=== PATIENT | female | born 1945 | race African-American/Black ===

== ENCOUNTER 2017-08-10 12:04 | Emergency (ER) | payer MEDICARE ==
[2017-08-10] MEDS ORDERED: HYDROcodone/Acetaminophen 5/325 mg Tablet ONE (13:54)
[2017-08-10] MEDS ORDERED: Diazepam 5 MG TAB ONE (14:24)
[2017-08-10 14:45] LABS: #Basophils 0.1 thou/uL (0.0-0.2); #Eosinphils 0.1 thou/uL (0.0-0.7); #Lymphocytes 2.2 thou/uL (1.20-3.40); #Monocytes 0.6 thou/uL (0.11-0.59); #Neutrophils 5.6 thou/uL (1.40-6.50); %Basophils 0.9 % (0.0-1.0); %Eosinophils 0.7 % (0.0-10.0); %Lymphocytes 26.1 % (21.0-51.0); %Monocytes 6.5 % (0.0-10.0); Hematocrit 44.2 % (36.0-47.0); Mean Platelet Volume 8.8 fL (7.4-10.4); Red Blood Cell (RBC) Count 5.16 mill/uL (4.20-5.40); White Blood Cell (WBC) Count 8.5 thou/uL (4.8-10.8)
[2017-08-10 15:05] LABS: ALT (SGPT) 20 U/L (8-55); AST (SGOT) 16 U/L (5-34); Alkaline Phosphatase 82 U/L (40-150); Anion Gap 18 mmol/L (10-20); BUN (Urea Nitrogen) 26 mg/dL (9.8-20.1); Bilirubin, Total 0.6 mg/dL (0.2-1.2); CK (CPK) 35 U/L (29-168); Calc. Creatinine Clearance 0 mL/min (70-130); Calcium 10.2 mg/dL (7.8-10.44); Carbon Dioxide 19 mmol/L (23-31); Chloride 105 mmol/L (98-107); Estimated GFR-MDRD 53; Globulin 4.3 g/dL (2.4-3.5); Magnesium 2.1 mg/dL (1.6-2.6); Protein, Total 8.7 g/dL (6.0-8.3)
--- NOTE | 2017-08-10 15:19 | RAD ---
RIGHT HIP TWO VIEWS: HISTORY: A 72-year-old female with right hip and bilateral leg pain without associated trauma. FINDINGS: There is some heterogeneous bony demineralization. Mild right hip joint arthrosis. No acute fractu re. Degenerative changes of both SI joints. 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 Bony demineralization without acute fr acture or dislocation. POS: [facility]
--- NOTE | 2017-08-10 15:20 | RAD ---
AP PELVIS ONE VIEW: HISTORY: A 72-year-old female with right hip pain and bilateral leg pain without associated injury. FINDINGS: There are degenerative changes involving the hip joints, SI joints, and the region of the pubic symp hysis, as well as lower lumbar spine spondylosis. Mild bony demineralization. No acute pelvic frac ture. IMPRESSION: 1. No acute fracture. 2. Generalized degenerative changes. 3. Mild bony demineralization. POS: [facility]
[2017-08-10 16:18] LABS: Bilirubin Negative (Negative); Blood, Urine Negative (Negative); Glucose, Urine (Dipstick) Negative (Negative); Ketone, Urine Negative (Negative); Nitrite Negative (Negative); Protein, Urine (Dipstick) Negative (Neg-Trace)
--- NOTE | 2017-08-10 16:42 | CT ---
ABDOMEN AND PELVIC CT SCAN WITH IV CONTRAST: 08/10/17 HISTORY: 69-year-old female with abdominal pain which began two weeks ago radiating around to back. COMPARISON: 09/23/14 FINDINGS: The lung bases are clear. Status post cholecystectomy and hysterectomy. Dilatation of the common valentina e duct consistent with post cholecystectomy without evidence for acute biliary tract obstruction. Pa ncreas, spleen and adrenal glands are unremarkable. Small hiatal hernia. Too small to characterize b ilateral renal hypodensity statistically small renal cysts. A focal area of minimal subcutaneous fat stranding focally over the left anterior abdomen just above the level of the umbilicus. Etiology of which is uncertain. Normal appearing appendix. Mild anterolisthesis of L4 on L5 with some moderate canal and lateral recess and foraminal stenosis. Generalized atherosclerotic calcific disease of the aorta and iliac arteries. No evidence of adenopathy, abscess or abnormal fluid collection within th e abdomen or pelvis. IMPRESSION: Postcholecystectomy common duct dilatation. Small hiatal hernia. Too small to characterize renal hyp odensities probably small cysts. Small focal area of subcutaneous fat stranding in the left anterior abdominal wall approximately 7 cm lateral to the umbilicus. Normal appearing appendix. 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 Diverticulosis without acute diverti culitis. POS: [facility]
--- NOTE | 2017-08-10 16:50 | CT ---
CT LUMBAR SPINE NONCONTRAST: 08/10/17 HISTORY: 72-year-old female with bilateral lumbar radiculopathy. COMPARISON: No prior CTs of the lumbar spine. There is an MRI of 11/29/12. FINDINGS: There are five lumbar type vertebrae. The vertebral body heights are maintained. There is mild disc space narrowing at L5-S1. The rest of the disc spaces are maintained. At L4-5, there is severe bilateral degenerative facet hypertrophy. This facet DJD causes a grade I a nterolisthesis of L4 on L5, resulting in bilateral moderate neural foraminal stenosis. The severe bi lateral facet hypertrophy decreases the transverse diameter of the spinal canal and thecal sac by a mild degree. There is at least moderate lateral recess stenosis bilaterally, At L2-3, there is mild to moderate bilateral degenerative facet hypertrophy, causing mild to moderat e degree of central spinal canal stenosis which is probably not significantly changed, allowing for the fact that these are two different imaging modalities. The spinal canal and thecal sac are generous in caliber at all other levels. There is no high grade neural foraminal stenosis at any other level. At L5-S1, in addition to a disc bulge, there is a superimposed new left paracentral/lateral focal di sc herniation which posteriorly displaces and mildly deforms the left S1 nerve root. No high grade d egenerative facet changes at L5-S1. The left sided small focal disc herniation at L5-S1 is the only significant interval change since the MRI of 11/29/12. There are two large anterior bridging osteophy lucy protruding into the prevertebral space, one on the right and one on the left, at L5-S1, fixating this level. IMPRESSION: 1. Small left paracentral disc herniation at L5-S1 impinging on the left S1 nerve root. This is the only interval change compared to the MRI of 11/29/12. 2. Severe facet osteoarthrosis at L4-5 causing a mild grade I spondylolisthesis, mild central s amber canal stenosis, moderate lateral recess stenosis bilaterally, and moderate neural foraminal st enosis bilaterally, unchanged since 11/29/12. 3. Mild to moderate central spinal canal stenosis at L2-3 due to mild to moderate bilateral deg enerative facet hypertrophy. 4. No central stenosis or high grade neural foraminal stenosis at any other level. POS: [facility]
== END 2017-08-10 17:30 | disposition home or self-care (01) ==
LOC: ERS 12:04
DX: M87.9 Osteonecrosis, unspecified (principal); M48.061 Spinal stenosis, lumbar region without neurogenic claudication; E11.40 Type 2 diabetes mellitus with diabetic neuropathy, unspecified; J45.909 Unspecified asthma, uncomplicated; Z79.4 Long term (current) use of insulin; Z79.899 Other long term (current) drug therapy
CPT/HCPCS: 36415; 72131; 72170; 74177; 80053; 81003; 82550; 83735; 85025

== ENCOUNTER 2018-05-31 13:57 | Outpatient (CLI) | payer MEDICARE | END 2018-05-31 13:58 | disposition home or self-care (01) | LOC: ULT 13:57 | PROVIDERS: ATTEND Internal Medicine Geriatric Medicine | DX: R01.1 Cardiac murmur, unspecified (principal); I08.3 Combined rheumatic disorders of mitral, aortic and tricuspid valves | CPT/HCPCS: 93306 ==

== ENCOUNTER 2018-10-13 08:15 | Outpatient (CLI) | payer MEDICARE | END 2018-10-13 08:16 | disposition home or self-care (01) | LOC: BICMAMMO 08:15 | PROVIDERS: ATTEND Internal Medicine Geriatric Medicine | DX: Z12.31 Encounter for screening mammogram for malignant neoplasm of breast (principal); R92.1 Mammographic calcification found on diagnostic imaging of breast | CPT/HCPCS: 77063; 77067 ==

== ENCOUNTER 2019-11-30 07:34 | Outpatient (CLI) | payer MEDICARE ==
--- NOTE | 2019-11-30 10:11 | ULT ---
RIGHT UPPER QUADRANT ULTRASOUND: HISTORY: Epigastric pain. FINDINGS: The patient is post cholecystectomy. The liver and visualized portions of the pancreas appear normal . There is a tiny echogenic focus in the right kidney, likely calculus. No hydronephrosis is seen. No free fluid is noted in the Jalloh's pouch. The common duct measures 7 mm in diameter. IMPRESSION: 1. Status post cholecystectomy. 2. Probably nonobstructing tiny right renal calculus. POS: [facility]
== END 2019-11-30 07:35 | disposition home or self-care (01) ==
LOC: BICULT 07:34
PROVIDERS: ATTEND Family Medicine
DX: R10.13 Epigastric pain (principal); Z90.49 Acquired absence of other specified parts of digestive tract
CPT/HCPCS: 76705

== ENCOUNTER 2019-12-24 08:07 | Outpatient (CLI) | payer MEDICARE ==
--- NOTE | 2019-12-24 09:23 | BD ---
DEXA BONE DENSITY STUDY: Date: 12/24/2019 HISTORY: Postmenopausal female. FINDINGS: Lumbar Spine: BMD (g/cm2) L1 0.948 T-Score: -0.4 L2 1.031 T-Score: 0.0 L3 0.994 T-Score: -0.8 L4 1.133 T-Score: +0.7 L1-L4 1.032 T-Score: -0.1 Within normal limits with no increased risk for fracture. Left Hip: Femoral Neck: 0.614 T-Score: -2.1 Total Femur: 0.736 T-Score: -1.7 Evidence for osteopenia with increased risk for fracture. FRAX SCORE: Major osteoporotic fracture: 6.1% Hip fracture: 1.6% POS: [facility]
== END 2019-12-24 08:08 | disposition home or self-care (01) ==
LOC: BICMAMMO 08:07
PROVIDERS: ATTEND Family Medicine
DX: M81.6 Localized osteoporosis [Lequesne] (principal); M85.852 Other specified disorders of bone density and structure, left thigh
CPT/HCPCS: 77080

== ENCOUNTER 2020-08-11 15:43 | Emergency (ER) | payer MEDICARE ==
[2020-08-11 16:22] LABS: #Basophils 0.1 thou/uL (0.0-0.2); #Eosinphils 0.4 thou/uL (0.0-0.7); #Lymphocytes 2.2 thou/uL (1.20-3.40); #Monocytes 0.4 thou/uL (0.11-0.59); #Neutrophils 2.8 thou/uL (1.40-6.50); %Basophils 1.1 % (0.0-1.0); %Eosinophils 6.4 % (0.0-10.0); %Lymphocytes 37.7 % (21.0-51.0); %Neutrophils 47.8 % (42.0-75.0); Hemoglobin 12.4 g/dL (12.0-16.0); Mean Corpuscular HGB CONC 32.8 g/dL (32.0-36.0); Mean Corpuscular Hemoglobin 28.8 pg (27.0-31.0); Mean Corpuscular Volume 87.9 fL (78.0-98.0); Mean Platelet Volume 9.2 fL (7.4-10.4); Platelet Count 183 thou/uL (130-400); RBC Distribution Width 12.4 % (11.5-14.5); Red Blood Cell (RBC) Count 4.31 mill/uL (4.20-5.40); White Blood Cell (WBC) Count 5.8 thou/uL (4.8-10.8)
--- NOTE | 2020-08-11 16:25 | RAD ---
CHEST ONE VIEW: History: Dizziness, weakness, shortness of breath. Comparison: 01-26-2016 FINDINGS: Heart size is upper limits of normal. There are vascular calcifications along the aortic arch. Lungs are clear. No pleural effusion or pneumothorax is evident. No definite acute osseous abnormality is n oted. There is suggestion of healed fracture deformity along the proximal right humerus that appears similar to the comparison examination in 2016. IMPRESSION: No definite acute cardiopulmonary abnormality. POS: [facility]
--- NOTE | 2020-08-11 16:28 | CT ---
CT BRAIN WITHOUT CONTRAST: HISTORY:Lightheadedness, dizziness, headache and weakness COMPARISON:06/06/2010 FINDINGS: There are foci of decreased attenuation in the periventricular white matter, consistent with chronic small vessel ischemic disease. No evidence of acute infarct, hemorrhage, midline shift or abnormal extra-axial fluid collections is seen. The ventricular size is appropriate and the basilar cisterns are patent. The bony calvarium is intact. The visualized paranasal sinuses and mastoid air cells are well aerated. IMPRESSION: No CT evidence of acute intracranial process.
[2020-08-11 16:43] LABS: ALT (SGPT) 23 U/L (8-55); AST (SGOT) 19 U/L (5-34); Alkaline Phosphatase 74 U/L (40-110); Anion Gap 12 mmol/L (10-20); BUN (Urea Nitrogen) 16 mg/dL (9.8-20.1); Bilirubin, Total 0.2 mg/dL (0.2-1.2); Calc. Creatinine Clearance 0 mL/min (70-130); Calcium 9.6 mg/dL (7.8-10.44); Carbon Dioxide 24 mmol/L (23-31); Chloride 104 mmol/L (98-107); Estimated GFR-MDRD 53; Globulin 3.4 g/dL (2.4-3.5); Glucose 155 mg/dL (83-110); Lipase 49 U/L (8-78); Potassium 3.8 mmol/L (3.5-5.1); Protein, Total 7.4 g/dL (6.0-8.3); Sodium 136 mmol/L (136-145)
== END 2020-08-11 19:04 | disposition home or self-care (01) ==
LOC: ERS 15:43
DX: I35.0 Nonrheumatic aortic (valve) stenosis (principal); E11.40 Type 2 diabetes mellitus with diabetic neuropathy, unspecified; J45.909 Unspecified asthma, uncomplicated; E78.00 Pure hypercholesterolemia, unspecified; I10 Essential (primary) hypertension; Z79.84 Long term (current) use of oral hypoglycemic drugs; Z79.899 Other long term (current) drug therapy
CPT/HCPCS: 36415; 70450; 71045; 80053; 83690; 85025; 85379; 93005

== ENCOUNTER 2021-04-09 22:50 | Observation (INO) | payer MEDICARE ==
[2021-04-09] MEDS ORDERED: Lidocaine Viscous Sol 2% 15 ml UD Cup ONE (23:24)
[2021-04-09] MEDS ORDERED: Aspirin Chewable 81 MG TAB ONE (23:24)
[2021-04-09] MEDS ORDERED: Mag-Al 1200 mg/1200 mg/30 ML UDCUP ONE (23:24)
[2021-04-09 23:41] LABS: #Basophils 0.1 thou/uL (0.0-0.2); #Eosinphils 0.4 thou/uL (0.0-0.7); #Lymphocytes 2.3 thou/uL (1.20-3.40); #Monocytes 0.5 thou/uL (0.11-0.59); #Neutrophils 2.7 thou/uL (1.40-6.50); %Basophils 1.6 % (0.0-1.0); %Eosinophils 6.6 % (0.0-10.0); %Lymphocytes 38.4 % (21.0-51.0); %Monocytes 8.7 % (0.0-10.0); %Neutrophils 44.6 % (42.0-75.0); Hemoglobin 11.4 g/dL (12.0-16.0); Mean Corpuscular HGB CONC 32.6 g/dL (32.0-36.0); Mean Corpuscular Hemoglobin 28.4 pg (27.0-31.0); Mean Corpuscular Volume 87.3 fL (78.0-98.0); Mean Platelet Volume 9.4 fL (7.4-10.4); Platelet Count 176 thou/uL (130-400); RBC Distribution Width 12.5 % (11.5-14.5); Red Blood Cell (RBC) Count 4.01 mill/uL (4.20-5.40)
[2021-04-10 00:03] LABS: ALT (SGPT) 14 U/L (8-55); AST (SGOT) 16 U/L (5-34); Albumin 3.9 g/dL (3.4-4.8); Alkaline Phosphatase 73 U/L (40-110); Anion Gap 13 mmol/L (10-20); BUN (Urea Nitrogen) 20 mg/dL (9.8-20.1); Bilirubin, Total 0.2 mg/dL (0.2-1.2); Calc. Creatinine Clearance 0 mL/min (70-130); Calcium 9.4 mg/dL (7.8-10.44); Carbon Dioxide 21 mmol/L (23-31); Chloride 108 mmol/L (98-107); Globulin 3.4 g/dL (2.4-3.5); Glucose 156 mg/dL (83-110); Potassium 3.7 mmol/L (3.5-5.1); Protein, Total 7.3 g/dL (5.8-8.1); Sodium 138 mmol/L (136-145)
[2021-04-10 02:11] LABS: Troponin I 0.011 ng/mL (< 0.028)
[2021-04-10] MEDS ORDERED: Acetaminophen 325 MG TAB PO PRN (04:30)
[2021-04-10] MEDS ORDERED: Ondansetron ODT 4 MG TAB SL PRN (04:30)
[2021-04-10] MEDS ORDERED: Ondansetron PF 4 MG/2 ML Vial IVP PRN (04:30)
[2021-04-10] MEDS ORDERED: Dextrose 5% in Water 1,000 ML IV PRN ×2 (04:43→08:24)
[2021-04-10] MEDS ORDERED: Dextrose 50% Abboject 50 ML SYRINGE SLOW IVP PRN ×2 (04:43→08:24)
[2021-04-10 05:02] LABS: Troponin I 0.015 ng/mL (< 0.028)
[2021-04-10 05:48] LABS: Anion Gap 14 mmol/L (10-20); BUN (Urea Nitrogen) 18 mg/dL (9.8-20.1); Calc. Creatinine Clearance 0 mL/min (70-130); Calcium 9.5 mg/dL (7.8-10.44); Carbon Dioxide 21 mmol/L (23-31); Chloride 108 mmol/L (98-107); Glucose 107 mg/dL (83-110); Potassium 3.7 mmol/L (3.5-5.1); Sodium 139 mmol/L (136-145)
[2021-04-10 05:50] LABS: Eosinophils 6 % (0-10); Hemoglobin 11.4 g/dL (12.0-16.0); Lymphocytes 50 % (21-51); MDiff Complete? YES; Mean Corpuscular HGB CONC 32.4 g/dL (32.0-36.0); Mean Corpuscular Hemoglobin 28.5 pg (27.0-31.0); Mean Corpuscular Volume 87.9 fL (78.0-98.0); Mean Platelet Volume 9.5 fL (7.4-10.4); Monocytes 7 % (0-10); Neutrophil 36 % (42-75); Platelet Count 164 thou/uL (130-400); Platelet Morphology Comment Appears Adequate; RBC Distribution Width 12.5 % (11.5-14.5); Red Blood Cell (RBC) Count 3.99 mill/uL (4.20-5.40); White Blood Cell (WBC) Count 5.2 thou/uL (4.8-10.8)
[2021-04-10 06:06] VITALS: BMI 26.2
[2021-04-10 08:08] LABS: Troponin I 0.028 ng/mL (< 0.028)
[2021-04-10] MEDS ORDERED: HumaLOG 300 UNITS/3 ML VIAL SC PRN (08:24)
[2021-04-10] MEDS ORDERED: Non-Formulary Item 1 EACH (Albuterol Sulfate [Proair Hfa] 8.5 GM Hfa.Aer.Ad) INH PRN (09:13)
[2021-04-10] MEDS ORDERED: Albuterol 200 PUFF (6.7GM INHALER) INH PRN (09:25)
[2021-04-10 11:21] VITALS: BP 133/63; TEMP 97.6
[2021-04-10] MEDS ORDERED: Pregabalin 75 MG CAP PO SCH (15:00)
[2021-04-10] MEDS ORDERED: Non-Formulary Item 1 EACH (Levemir Flexpen [Levemir Flexpen] 100 UNITS/ML Pen) SC SCH (21:00)
[2021-04-10] MEDS ORDERED: Atorvastatin Calcium 20 MG TAB PO SCH (21:00)
[2021-04-10] MEDS ORDERED: Lantus 1000 UNITS/10 ML VIAL SC SCH (21:00)
[2021-04-10] MEDS ORDERED: Simvastatin 40 MG TAB PO SCH (21:00)
== END 2021-04-10 13:47 | disposition home or self-care (01) ==
LOC: ERS 22:50 → 2SE 04-10 02:53
PROVIDERS: ADMIT Student in an Organized Health Care Education/Training Program; ATTEND Student in an Organized Health Care Education/Training Program
DX: R07.9 Chest pain, unspecified (principal); R06.02 Shortness of breath; J45.909 Unspecified asthma, uncomplicated; I10 Essential (primary) hypertension; E11.9 Type 2 diabetes mellitus without complications; E78.5 Hyperlipidemia, unspecified; I35.0 Nonrheumatic aortic (valve) stenosis; Z79.2 Long term (current) use of antibiotics; Z79.899 Other long term (current) drug therapy; Z66 Do not resuscitate
CPT/HCPCS: 36415; 36416; 71045; 80048; 80053; 84484; 85025; 93005; G0378

== ENCOUNTER 2021-07-03 10:10 | Outpatient (CLI) | payer MEDICARE | END 2021-07-03 10:11 | disposition home or self-care (01) | LOC: BICMAMMO 10:10 | PROVIDERS: ATTEND Family Medicine | DX: Z12.31 Encounter for screening mammogram for malignant neoplasm of breast (principal); Z80.3 Family history of malignant neoplasm of breast | CPT/HCPCS: 77063; 77067 ==

== ENCOUNTER 2022-03-22 11:23 | Observation (INO) | payer MEDICARE ==
[2022-03-22 12:06] LABS: #Eosinphils 0.2 thou/uL (0.0-0.7); #Lymphocytes 1.9 thou/uL (1.20-3.40); #Monocytes 0.5 thou/uL (0.11-0.59); #Neutrophils 3.3 thou/uL (1.40-6.50); %Basophils 0.8 % (0.0-1.0); %Eosinophils 3.8 % (0.0-10.0); %Lymphocytes 31.1 % (21.0-51.0); %Monocytes 9.1 % (0.0-10.0); %Neutrophils 55.3 % (42.0-75.0); Hemoglobin 12.6 g/dL (12.0-16.0); Mean Corpuscular HGB CONC 31.2 g/dL (32.0-36.0); Mean Corpuscular Hemoglobin 27.8 pg (27.0-31.0); Mean Platelet Volume 9.1 fL (7.4-10.4); Platelet Count 187 thou/uL (130-400); RBC Distribution Width 12.3 % (11.5-14.5); Red Blood Cell (RBC) Count 4.52 mill/uL (4.20-5.40)
[2022-03-22 12:29] LABS: ALT (SGPT) 18 U/L (8-55); AST (SGOT) 18 U/L (5-34); Albumin 4.3 g/dL (3.4-4.8); Alkaline Phosphatase 90 U/L (40-110); Anion Gap 15 mmol/L (10-20); BUN (Urea Nitrogen) 14 mg/dL (9.8-20.1); Bilirubin, Total 0.7 mg/dL (0.2-1.2); Calc. Creatinine Clearance 0 mL/min (70-130); Calcium 9.7 mg/dL (7.8-10.44); Carbon Dioxide 23 mmol/L (23-31); Chloride 102 mmol/L (98-107); Globulin 3.6 g/dL (2.4-3.5); Glucose 128 mg/dL (83-110); Lipase 25 U/L (8-78); Potassium 4.3 mmol/L (3.5-5.1); Protein, Total 7.9 g/dL (5.8-8.1); Sodium 136 mmol/L (136-145)
[2022-03-22] MEDS ORDERED: Aspirin Chewable 81 MG TAB ONE (13:03)
[2022-03-22] MEDS ORDERED: Acetaminophen 325 MG TAB PO PRN (14:15)
[2022-03-22] MEDS ORDERED: Acetaminophen 650 MG Suppository PR PRN (14:15)
[2022-03-22] MEDS ORDERED: Aspirin 325 MG TAB PO SCH (14:15)
[2022-03-22] MEDS ORDERED: Bisacodyl 5 MG TAB PO PRN (14:15)
[2022-03-22] MEDS ORDERED: Senokot S 8.6-50 MG TAB PO PRN (14:15)
[2022-03-22] MEDS ORDERED: Nitroglycerin 0.4 MG TAB (25 Tab Bottle) SL PRN (14:15)
[2022-03-22] MEDS ORDERED: Ondansetron ODT 4 MG TAB PO PRN (14:15)
[2022-03-22] MEDS ORDERED: Enoxaparin Sodium 40 MG/0.4 ML SYRINGE SC SCH (14:15)
[2022-03-22] MEDS ORDERED: Calcium Carbonate 500 MG ChewTAB PO PRN (14:15)
[2022-03-22] MEDS ORDERED: Dextrose 50% Abboject 50 ML SYRINGE SLOW IVP PRN ×2 (14:17→17:50)
[2022-03-22] MEDS ORDERED: Dextrose 5% in Water 1,000 ML IV PRN ×2 (14:17→17:50)
[2022-03-22] MEDS ORDERED: HumaLOG 300 UNITS/3 ML VIAL SC PRN (14:17)
[2022-03-22 15:25] LABS: Troponin I Less than 0.010 ng/mL (< 0.028)
[2022-03-22 16:56] VITALS: BMI 24.5
[2022-03-22] MEDS ORDERED: Potassium Chloride 10 MEQ TAB PO PRN (17:57)
[2022-03-22] MEDS ORDERED: Furosemide 20 MG TAB PO PRN (17:57)
[2022-03-22] MEDS ORDERED: Lidocaine 2% Viscous Solution 10 ML, Aluminum & Magnesium Hydroxide 30 ML SSW SCH (18:00)
[2022-03-22] MEDS ORDERED: Albuterol Sulfate 2.5 mg/3 ml Neb NEB PRN (18:08)
[2022-03-22 18:39] LABS: Troponin I Less than 0.010 ng/mL (< 0.028)
[2022-03-22] MEDS: Gabapentin 300 MG CAP PO SCH (20:36)
[2022-03-22] MEDS ORDERED: Insulin Glargine 30 UNITS/0.3 ML VIAL SC SCH (21:00)
[2022-03-22] MEDS ORDERED: Atorvastatin Calcium 10 MG TAB PO SCH (21:00)
[2022-03-22] MEDS: Diclofenac 1% 100 GM GEL TP SCH (21:04)
[2022-03-22 22:34] LABS: Bacteria/HPF None Seen HPF (None Seen); Bilirubin Negative (Negative); Blood, Urine Negative (Negative); Clarity Clear (Clear); Glucose, Urine (Dipstick) Normal (Negative); Ketone, Urine Negative (Negative); Leukocyte 75 Leu/uL (Negative); Nitrite Negative (Negative); Protein, Urine (Dipstick) Negative (Neg-Trace); RBC/HPF 0-3 HPF (0-3); Specific Gravity, Urine 1.013 (1.002-1.036); Squamous Epithelial 0-3 HPF (0-3); Urobilinogen Normal mg/dL (Less than 2); WBC/HPF 0-3 HPF (0-3)
[2022-03-22 22:36] LABS: Urine Culture Reflex Yes Yes
[2022-03-23 05:34] LABS: Hemoglobin A1c 6.5 % (4.0-6.0)
[2022-03-23 05:48] LABS: Anion Gap 12 mmol/L (10-20); BUN (Urea Nitrogen) 13 mg/dL (9.8-20.1); Calc. Creatinine Clearance 39 mL/min (70-130); Calcium 9.9 mg/dL (7.8-10.44); Carbon Dioxide 25 mmol/L (23-31); Cardiac Risk 7.1 (Less than 4.5); Chloride 104 mmol/L (98-107); Cholesterol 219 mg/dl (< 200 Desired); Glucose 84 mg/dL (83-110); HDL Cholesterol 31 mg/dL (>60 Neg Risk); LDL Cholesterol, Calculated 166 mg/dL; Potassium 4.2 mmol/L (3.5-5.1); Sodium 137 mmol/L (136-145); Triglycerides 111 mg/dL (Less than 150)
[2022-03-23 07:51] VITALS: TEMP 97.8
[2022-03-23] MEDS ORDERED: cefTRIAXone\\ROCEPHIN 1 GM in Sodium Chloride 0.9% 100 ML IVPB SCH (08:00)
[2022-03-23] MEDS ORDERED: Enoxaparin Sodium 40 MG/0.4 ML SYRINGE SC SCH (09:00)
[2022-03-23] MEDS ORDERED: Aspirin 81 mg Enteric Coated Tablet PO SCH (09:00)
[2022-03-23] MEDS ORDERED: Aspirin Chewable 81 MG TAB PO SCH (09:00)
[2022-03-23] MEDS: Gabapentin 300 MG CAP PO SCH (09:31)
[2022-03-23] MEDS: Diclofenac 1% 100 GM GEL TP SCH ×2 (09:41→14:22)
[2022-03-23 11:49] VITALS: BP 121/59
== END 2022-03-23 14:25 | disposition home or self-care (01) ==
LOC: ERS 11:23 → ERHOLD 14:15 → 2SW 17:47
PROVIDERS: ADMIT Family Medicine; ATTEND Family Medicine
DX: R07.89 Other chest pain (principal); N39.0 Urinary tract infection, site not specified; E11.40 Type 2 diabetes mellitus with diabetic neuropathy, unspecified; J45.909 Unspecified asthma, uncomplicated; E78.5 Hyperlipidemia, unspecified; I08.8 Other rheumatic multiple valve diseases; Z79.4 Long term (current) use of insulin; Z79.82 Long term (current) use of aspirin; Z79.899 Other long term (current) drug therapy; Z20.822 Contact with and (suspected) exposure to COVID-19
CPT/HCPCS: 71045; 80048; 80053; 80061; 81001; 82962 ×2; 83036; 83690; 84484 ×2; 85025; 87086; 93005 ×2; 93306; 94760; 97139 ×2; 99285; U0003; U0005; 36415; 36416; 93010; 96372; 96374; G0378; J0696; J1650; J1815; J3490

== ENCOUNTER 2022-03-25 14:30 | Outpatient (CLI) | payer MEDICARE | END 2022-03-25 14:31 | disposition home or self-care (01) | LOC: BICRAD 14:30 | PROVIDERS: ATTEND Family Medicine | DX: M54.2 Cervicalgia (principal); M47.812 Spondylosis without myelopathy or radiculopathy, cervical region | CPT/HCPCS: 36415; 72040; 82150; 83690 ==

== ENCOUNTER 2022-03-31 06:50 | Outpatient (CLI) | payer MEDICARE | END 2022-03-31 06:51 | disposition home or self-care (01) | LOC: BICULT 06:50 | PROVIDERS: ATTEND Family Medicine | DX: R10.10 Upper abdominal pain, unspecified (principal); K76.0 Fatty (change of) liver, not elsewhere classified; K83.8 Other specified diseases of biliary tract; Z90.49 Acquired absence of other specified parts of digestive tract | CPT/HCPCS: 76700 ==

== ENCOUNTER 2025-07-18 07:50 | Outpatient (CLI) | payer OTHER | END 2025-07-18 07:51 | disposition home or self-care (01) | LOC: BICMAMMO 07:50 | PROVIDERS: ATTEND Family Medicine | DX: Z12.31 Encounter for screening mammogram for malignant neoplasm of breast (principal); Z80.3 Family history of malignant neoplasm of breast | CPT/HCPCS: 77063; 77067 ==

== ENCOUNTER 2025-07-31 08:32 | Outpatient (CLI) | payer OTHER | END 2025-07-31 08:33 | disposition home or self-care (01) | LOC: ULT 08:32 | PROVIDERS: ATTEND Family Medicine | DX: N18.31 Chronic kidney disease, stage 3a (principal); K29.50 Unspecified chronic gastritis without bleeding | CPT/HCPCS: 76705; 76770; 93975 ==